=== PATIENT | male | born 1965 | race Caucasian/White ===

== ENCOUNTER 2020-10-28 10:37 | Emergency (ER) | payer BC ==
[~2020-10-28] VITALS: Ht 190.5 cm; Wt 115.7 kg
[2020-10-28] MEDS ORDERED: OMEPRAZOLE10 MG PO (10:56)
[2020-10-28] MEDS ORDERED: BACTRIM DS TAB1 EACH PO (11:36)
[2020-10-28 11:49] VITALS: BP 160/96
== END 2020-10-28 11:50 | disposition home or self-care (01) ==
LOC: M.ERS 10:37
DX: S50.852A Superficial foreign body of left forearm, initial encounter (principal); Z88.6 Allergy status to analgesic agent; W34.09XA Accidental discharge from other specified firearms, initial encounter; Y93.89 Activity, other specified; Y92.89 Other specified places as the place of occurrence of the external cause; Y99.8 Other external cause status